=== PATIENT | female | born 1945 | race Two or more races ===

== ENCOUNTER 2024-09-11 21:18 | Emergency (ER) | payer MEDICARE, MEDICAID, SELFPAY ==
[2024-09-11 21:20] VITALS: BMI 23.4
--- NOTE | 2024-09-11 21:21 | EKG_ITS ---
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
[2024-09-11 22:40] VITALS: BP 177/71; PULSE 69; RESP 18; TEMP 36.6; O2SAT 97
--- NOTE | 2024-09-11 22:51 | XR_ITS ---
Examination: PA chest single view TECHNIQUE: Upright PA chest single view Examination time: September 11, 2024 at 11:08 PM Comparison 03/21/2018 INDICATIONS: Chest pain and shortness of breath today. FINDINGS: Normal heart size No interval lobar pneumonia or pulmonary edema Moderate osteopenia IMPRESSION: No interval pneumonia or pulmonary edema
--- NOTE | 2024-09-11 22:52 | EDRME_ITS ---
Rapid Medical Screening Exam [facility] Arrival date/time: 09/11/24 21:18 79F with history of HTN and unknown heart conditions (sees Dr. Wharton) presents to D with 1 day of CP and SOB, as well as several days of cough. Chief Complaint: Shortness of Breath/Dyspnea Vital signs: Vital Signs Temperature 98 F 09/11/24 22:40 Pulse Rate 69 09/11/24 22:40 Respiratory Rate 18 09/11/24 22:40 Blood Pressure 177/71 H 09/11/24 22:40 Pulse Oximetry (%) 97 09/11/24 22:40 Oxygen Delivery Method Room Air 09/11/24 22:40
[2024-09-11 23:27] LABS: Basophils % (Auto) 1 % (0-2.5); Eosinophils % (Auto) 0 % (0-10); Hematocrit 42.8 % (36.0-46.0); Hemoglobin 14.3 g/dL (12.0-16.0); Immature Granulocytes % (Auto) 0 % (0-0); Immature Granulocytes Auto 0.01 Thou/mm3 (0.00-0.00); Lymphocytes # (Auto) 1.3 Thou/mm3 (1.0-4.8); Lymphocytes % (Auto) 22 % (10-50); Mean Corpuscular HGB Conc 33.4 g/dl (31.0-37.0); Mean Corpuscular Hemoglobin 31.4 pg (25.0-35.0); Mean Corpuscular Volume 94 fL (80-100); Monocytes # (Auto) 0.6 Thou/mm3 (0.0-0.8); Monocytes % (Auto) 10 % (0-12); Neutrophils % (Auto) 68 % (37-80); Nucleated Red Blood Cell % 0 /100 WBC (0); Platelet Count 169 Thou/mm3 (140-440); RDW Standard Deviation 47.8 fL (36.4-46.3); Red Blood Count 4.55 Miln/mm3 (4.00-5.20); White Blood Count 5.9 Thou/mm3 (3.6-11.0)
[2024-09-11 23:42] LABS: B-Type Natriuretic Peptide 69 pg/mL (0-100)
[2024-09-11 23:54] LABS: Alanine Aminotransferase 17 U/L (10-49); Albumin, Serum 4.3 gm/dL (3.4-4.8); Albumin/Globulin Ratio 1.5 (1.2-2.2); Alkaline Phosphatase 97 U/L (46-116); Anion Gap 6 (7-16); Aspartate Amino Transferase 15 U/L (0-34); BUN/Creatinine Ratio 29 Ratio (12-20); Bilirubin,Total 0.6 mg/dL (0.3-1.2); Blood Urea Nitrogen 23 mg/dL (9-23); Carbon Dioxide 28.1 mMol/L (20.0-31.0); Chloride 105 mMol/L (98-107); Creatinine (Component) 0.8 mg/dL (0.6-1.3); Globulin 2.8 gm/dL (2.3-3.5); Glucose 116 mg/dL (74-106); Osmolality,Calculated 282 (275-295); Potassium 4.1 mMol/L (3.4-5.1); Procalcitonin 0.05 ng/ml (0.0-0.49); Sodium 139 mMol/L (136-145); Total Protein 7.1 gm/dL (5.7-8.2); Troponin I < 0.002 ng/mL (0.0-0.045); eGFR > 60 See Note
[2024-09-12] VITALS (7 sets, daily range): BP systolic 146–214; BP diastolic 75–90; PULSE 72–97; RESP 14–20; TEMP 36.6–36.9; O2SAT 94–98
--- NOTE | 2024-09-12 01:00 | PD.EDSOB ---
ED SOB =RME/HPI General Chief Complaint: Shortness of Breath/Dyspnea Stated Complaint: DIFFICULTY BREATHING, HEADACHE, CHEST PAIN, COUGH Source: patient Arrival date/time: 09/11/24 21:18 Mode of arrival: ambulatory Limitations: no limitations RME / HPI RME / HPI Narrative: 09/11/24 21:18 79F with history of HTN and unknown heart conditions (sees Dr. Wharton) presents to D with 1 day of CP and SOB, as well as several days of cough. Dr. Martin?s Main ED Evaluation: 79-year-old female with a history of hypertension, hyperlipidemia, varicose veins, gastroesophageal reflux disease, depression, and anxiety, presenting to the emergency department with left-sided chest pressure non radiating since 19:00. The pain is associated with shortness of breath and an episode of nausea and vomiting. She also endorses a cough for several days. The patient denies any other medical complaints. Cardiology: Dr. Wharton, scheduled for stress test on 09/20/24 Related Data Home Medications ?Medication ?Instructions ?Recorded ?Confirmed amlodipine 5 mg tablet 5 mg PO QDAY 11/30/18 09/12/24 buspirone 5 mg tablet 5 mg PO BID 11/30/18 09/12/24 losartan 50 mg tablet 50 mg PO QDAY 11/30/18 09/12/24 omeprazole 40 mg capsule,delayed 40 mg PO QDAY 11/30/18 09/12/24 release conjugated estrogens 0.625 mg 0.625 mg PO QDAY 09/12/24 09/12/24 tablet (Premarin) Previous Rx's ?Medication ?Instructions ?Recorded valsartan 160 mg tablet 160 mg PO QDAY #30 tabs 04/26/23 Allergies Allergy/AdvReac Type Severity Reaction Status Date / Time latex Allergy Severe BLISTER Verified 09/11/24 21:22 Penicillins Allergy Severe Hives Verified 09/11/24 21:22 Review of Systems Review of Systems Systems Reviewed: All systems reviewed, normal except as documented Past Medical History Past Medical History NEUROLOGIC: Negative Neurological Disorders or Seizures CARDIAC: Positive Cardiac Disorders, Hypercholesterolemia, Hypertension and Varicose Veins; Negative Congestive Heart Failure RESPIRATORY: Negative Chronic Obstructive Pulmonary Disease (COPD) or Pneumonia GASTROINTESTINAL: Positive Gastrointestinal Disorders, Gall Bladder Disease and Gastroesophageal Reflux Disease GENITOURINARY: Negative Genitourinary Disorders or Renal Disease REPRODUCTIVE: Positive Previous Pregnancies; Negative Breast Cancer MUSCULOSKELETAL: Positive Musculoskeletal Disorders, Arthritis, Osteoporosis and Fractures ENDOCRINE: Positive Endocrine Disorders; Negative Diabetes Mellitus Type 1 or Diabetes Mellitus Type 2 HEMATOLOGIC: Negative Blood Disorders PSYCHO/SOCIAL: Positive Depression and Anxiety OTHER HISTORY: Positive Shingles and Chicken Pox; Negative Hospitalization, Autoimmune Disease, Falls, Blood Transfusions, Anesthesia Reactions, Chemotherapy, Radiation Therapy or Breast Cancer Family History FAMILY HISTORY: Positive Family Cardiac Disorders and Family Surgery; Negative Family Psychiatric Problems, Family Respiratory Disorders, Family Gastrointestinal Problems, Family Cancer or Family Anesthesia Reaction Surgical History SURGICAL: Positive Angiogram, Arthroscopy and Hysterectomy Social History SMOKING STATUS: Never smoker ED Exam General Limitations: Present no limitations General appearance: Present alert and in no apparent distress Head Head exam: Present atraumatic Eye Eye exam: Present normal appearance, PERRL and EOMI ENT ENT exam: Present normal exam, normal oropharynx and mucous membranes moist Neck Neck exam: Present normal inspection, full ROM and trachea midline Chest Chest inspection: Present normal inspection and symmetric chest wall rise Respiratory Respiratory exam: Present normal lung sounds bilaterally Cardiovascular Cardiovascular exam: Present regular rate, normal rhythm and normal heart sounds Abdominal Exam Abdominal exam: Present soft and normal bowel sounds Extremities Exam Extremities exam: Present normal inspection and full ROM Back Exam Back exam: Present normal inspection and full ROM Neurological Exam Neurological exam: Present alert, oriented X3 and CN II-XII intact Psychiatric Psychiatric exam: Present normal affect and normal mood Skin Skin exam: Present warm, dry, intact and normal color Course Course Course Narrative: CXR is ordered for determining etiology of shortness of breath Quality Measures none Orders Category Date Time Status Bedside COVID-19 Antigen Test NOW Care 09/11/24 21:21 Active Bedside Influenza A&B Antigen Test NOW Care 09/11/24 21:[address] Screening NOW Care 09/12/24 01:33 Active Machine Stuffer Automatic STAT Care 09/12/24 01:15 Active EKG (ED ONLY) *Do not use* NOW Care 09/11/24 21:21 Completed EKG (ED ONLY) *Do not use* NOW Care 09/12/24 01:15 Completed Insert IV STAT Care 09/12/24 01:[address] soft tissue neck chest w Stat Exams 09/12/24 01:32 Taken EKG (ED Only) Stat Exams 09/11/24 21:21 Draft EKG (ED Only) Stat Exams 09/12/24 01:15 Draft XR chest 1V portable Stat Exams 09/11/24 22:51 Completed B-Type Natriuretic Peptide Stat Lab 09/11/24 23:05 Completed CBC Stat Lab 09/11/24 23:05 Completed Comprehensive Metabolic Panel Stat Lab 09/11/24 23:05 Completed Free T4 (Free Thyroxine) Stat Lab 09/12/24 01:55 Completed Lipase Stat Lab 09/12/24 01:55 Completed Magnesium Stat Lab 09/12/24 01:55 Completed Procalcitonin Stat Lab 09/11/24 23:05 Completed Prothrombin Time with INR Stat Lab 09/12/24 01:55 Completed TSH [Thyroid Stimulating Hormone] Stat Lab 09/12/24 01:55 Completed Troponin I Stat Lab 09/11/24 23:05 Completed Troponin I Stat Lab 09/12/24 01:55 Completed Aspirin Med 09/12/24 01:17 Discontinued 325 mg PO X1 ONE LORazepam [Ativan Inj] Med 09/12/24 02:16 Discontinued 0.5 mg IVP X1 ONE Nitroglycerin Oint 2% [Nitro-paste Oint 2%] Med 09/12/24 01:15 Discontinued 1 inch TOP X1 ONE Sodium Chloride 0.9% 500 ml [Ns] 500 ml Med 09/12/24 01:19 Discontinued IV 999 mls/hr Vital Signs Vital signs: Vital Signs Temperature 98 F 09/11/24 22:40 Pulse Rate 69 09/11/24 22:40 Respiratory Rate 18 09/11/24 22:40 Blood Pressure 177/71 H 09/11/24 22:40 Pulse Oximetry (%) 97 09/11/24 22:40 Oxygen Delivery Method Room Air 09/11/24 22:40 Shortness of Breath / Dyspnea MDM Narrative MDM Narrative:: Heart Score: 5 Moderate Risk 0600 Care signed out to daysiaft provider. Past medical, surgical, social and family history reviewed. Vitals and home medications reviewed. Results and treatment plan discussed. I will assume the care of the patient at this time and will follow the patient, pending possible admission. Admission has already been requested to the hospitalist team. Scribe Attestation: I, Chaparro Dias, am scribing for and in the presence of Dr. Martin. Provider Notation: Although this document has been carefully reviewed, there may still be some phonetic and other typographical errors. These errors are purely grammatical due to imperfections in the software program and should not be construed in any way to compromise the substance of the patient's medical care during this visit. Patient data External records reviewed:: [facility] previous records Clinical information provided by:: patient Social determinants that could affect healthcare access:: none Patient has the following chronic illnesses:: see PMH How is presenting disease/condition affected by chronic disease/condition?: uneffected by Evaluation data The following diagnostics were reviewed and interpreted by me:: lab results, radiology exam(s) and EKG tracing(s) Lab and/or radiology exams considered but not ordered:: na Interpretation Summary: EKG #1 According to my interpretation on 09/11/24 at 22:32, the ECG shows normal sinus rhythm at 70 bpm, with a normal axis, no ectopy, and no acute ischemic changes. EKG #2 According to my interpretation on 09/12/24 at 01:41, the ECG shows normal sinus rhythm at 66 bpm, with a normal axis, no ectopy, and no acute ischemic changes. CXR shows normal cardiac silhouette, normal sharp diaphragmatic edge, no infiltrates, normal costophrenic angles, according to my interpretation. Unchanged 03/21/2018. Examination: PA chest single view TECHNIQUE: Upright PA chest single view Examination time: September 11, 2024 at 11:08 PM Comparison 03/21/2018 INDICATIONS: Chest pain and shortness of breath today. FINDINGS: Normal heart size No interval lobar pneumonia or pulmonary edema Moderate osteopenia IMPRESSION: No interval pneumonia or pulmonary edema Dictated By: Ted Clifford MD Medications / Prescriptions Medications or Prescriptions considered but not ordered:: na Medication administrations:: Medication Administration History Discontinued Medications Aspirin (Aspirin 325 Mg Tablet) 325 mg PO X1 ONE Stop: 09/12/24 01:18 Last Admin: 09/12/24 01:43 Dose: 325 mg Documented By: BC Sodium Chloride (Ns) 500 mls @ 999 mls/hr IV .Q31M ONE Stop: 09/12/24 01:49 Last Infusion: 09/12/24 02:30 Dose: Infused Documented By: Admin: 09/12/24 01:54 Dose: 999 mls/hr Documented By: BC Lorazepam (Lorazepam 2 Mg/Ml Vial) 0.5 mg IVP X1 ONE Stop: 09/12/24 02:17 Last Admin: 09/12/24 02:34 Dose: 0.5 mg Documented By: BC Nitroglycerin (Nitroglycerin Oint 2% 1 Inch Packet) 1 inch TOP X1 ONE Stop: 09/12/24 01:16 Last Admin: 09/12/24 01:43 Dose: 1 inch Documented By: BC as above, if any Consultations Consultation(s) initiated? (list below): Yes Consultation #1 (Physician, Specialty, Details): see narrative Diagnosis Shortness of Breath Differential Diagnosis: other (STEMI, NON-STEMI, Angina, Anxiety) Most likely diagnosis given after review of the tests above:: see clinical impression Admission Indicated Admission indicated?: indicated Admission Request Was there a request for admission?: Yes Admission Attestation Admission request attestation: Discussed case with [] from Hospitalist service regarding admission. Discussed patients ED course, exam findings, labs, and radiology results. The Hospitalist [agrees,declines] to accept the patient for admission. Disposition Plan Disposition Plan: Admit Critical Care Time Critical Care Time Critical Care Time: Yes Total Critical Care Time (min.): 35 Attestation: The high probability of sudden, clinically significant deterioration in the patient?s condition required the highest level of my preparedness to intervene urgently. ? The services I provided to this patient were to treat and/or prevent clinically significant deterioration. Services included the following: chart data review, reviewing nursing notes and/or old charts, documentation time, staffing consultant collaboration regarding findings and treatment options, medication orders and management, direct patient care, vital sign assessments and ordering, interpreting and reviewing diagnostic studies and lab tests. ? Aggregate critical care time includes only time during which I was engaged in work directly related to the patient?s care, as described above, whether at bedside or elsewhere in the Emergency Department. It did not include time spent performing other reported procedures or the services of residents, students, nurses or physician assistants. Discharge Plan Prescriptions/Referrals Prescriptions/Med Rec: No Action losartan 50 mg Tablet 50 mg PO QDAY buspirone 5 mg Tablet 5 mg PO BID amlodipine 5 mg Tablet 5 mg PO QDAY omeprazole 40 mg Capsule,Delayed Release(Dr/Ec) 40 mg PO QDAY Premarin 0.625 mg tablet 0.625 mg PO QDAY valsartan 160 mg tablet 160 mg PO QDAY Qty: 30 0RF Referrals: No Primary/Family,Physician [Primary Care Provider] - In 1 week Problem List Clinical Impression: Chest pain, Dehydration, Thyroid mass Patient/Caregiver Discharge Instructions Print Language: [place]an
--- NOTE | 2024-09-12 01:15 | EKG_ITS ---
[facility] Test Date: 2024-09-12 Pat Name: CAMILA PEREZ Department: Room: - Gender: Female [id number] Developer: : 1945 Requested By: Stevie Curtis Order Number: [id number] Reading MD: Stevie Curtis Measurements Intervals [place] Rate: 66 P: 48 [place]: 184 QRS: 33 QRSD: 86 T: 65 QT: 404 QTc: 424 Interpretive Statements SINUS RHYTHM Compared to ECG 09/11/2024 22:33:34 No significant changes /store/S0/[id number].pdf
--- NOTE | 2024-09-12 01:32 | XR_ITS ---
Examination: CT soft tissue neck with intravenous contrast CT chest with intravenous contrast 2-D sagittal and coronal reconstructions Exam date and time: September 12, 2024 at 0328 hours INDICATIONS: History thyroidectomy, onset right neck mass difficulty breathing beginning 3 days ago CTDI:vol (mGy) 20.72 DLP: (mGycm) 502 Technique: Multiple axial sections of the thorax soft tissue neck have been obtained. Sections have been obtained, 3 mm slice thickness. Mediastinal and lung density settings have been obtained. Intravenous contrast administered, 50 cc Isovue-370. 2-D sagittal, coronal images obtained. Low dose protocols were performed. One or more of the following dose reduction techniques were used; automated exposure control, adjustment of the mA and/or KV according to patient size, use of iterative reconstruction technique. Findings: Significant left maxillary sinus disease No enhancing oropharyngeal or nasopharyngeal mass Symmetrical submandibular glands The larynx appears normal Right thyromegaly with multiple bilateral thyroid nodules Thoracic aorta pulmonary arteries intact No paratracheal tracheobronchial or bronchopulmonary adenopathy 7 mm noncalcified pulmonary nodule right upper lobe. No pneumonia or pulmonary edema Mild enlargement left atrium and left ventricle No visualized overt splenic lesion Absent gallbladder Common bile duct 17 mm IMPRESSION: Significant left maxillary sinus disease Right thyromegaly Multiple bilateral thyroid nodules, recommend dedicated thyroid sonography follow-up 7 mm noncalcified pulmonary nodule right upper lobe, recommend 6 month follow-up CT chest without contrast Common bile duct 17 mm, recommend hepatobiliary sonography follow-up
[2024-09-12] MEDS: Aspirin 325 MG TABLET PO (01:43)
[2024-09-12] MEDS: NITROGLYCERIN OINT 2% 1 INCH PACKET TOP (01:43)
[2024-09-12] MEDS: SODIUM CHLORIDE 0.9% 500 ML 500 ML 999 ML IV (01:54)
[2024-09-12] MEDS: LORazepam 2 MG/ML VIAL 0.5 MG IVP (02:34)
[2024-09-12 02:46] LABS: Prothrombin Time 10.8 Seconds (9.0-12.2)
[2024-09-12 02:55] LABS: Free T4 (Free Thyroxine) 1.25 ng/dL (0.89-1.76); Lipase 50 U/L (12-53); Magnesium 2.4 mg/dL (1.6-2.6); Thyroid Stimulating Hormone 2.56 uIU/mL (0.55-4.78); Troponin I < 0.002 ng/mL (0.0-0.045)
--- NOTE | 2024-09-12 04:30 | PRELIM_ITS ---
CT scan of the neck and chest with intravenous contrast (axial sections with sagittal and coronal reformats) September 12, 2024 0328 hours Clinical History: Chest pain Comparison: None. Findings: The nasopharynx, oropharynx, hypopharynx, supraglottic and infraglottic larynx, vocal cords and upper trachea are unremarkable. The epiglottis and aryepiglottic folds appear unremarkable. The superficial soft tissues of the neck are unremarkable. No enhancing lesion or fluid collection is identified. The vessels of the neck are well opacified. No filling defect is seen. Small consolidations at the lung bases, atelectasis versus small foci of pneumonia. There is no pneumothorax or pleural effusion. The aorta is unremarkable. No evidence of mediastinal mass or lymphadenopathy. There is no pericardial effusion. S/p cholecystectomy. Small hiatus hernia. The osseous structures are unremarkable. Small hiatus hernia. Heterogenous bilateral thyroid nodules, the largest measuring 2.7 cm. Dilated left atrium. Impression: Dilated left atrium. Thyroid nodules, correlation with thyroid function tests and ultrasound is recommended. Small hiatus hernia. Small consolidations at the lung bases, atelectasis versus small foci of pneumonia. Small hiatus hernia. Report Electronically Signed By: Eddie Brady 09/12/2024 4:29:41 AM [EST]
--- NOTE | 2024-09-12 06:05 | EVENTNT_ITS ---
Documentation for date of: 09/12/24 Event Note Event Note: A 78-year-old female patient with past medical history of hypertension, GERD, depression, anxiety, hyperlipidemia, came to the ED today due to history of chest pain located in the left side with no radiation started at 7 PM. As sociated shortness of breath nausea vomiting. Patient was scheduled to see Dr. Wharton for stress test on 20 September 2024. EKG was negative for any ischemic changes, and troponin was negative in 2 reads. On questioning patient found to have thyroid goiter and reported that it affects her swallowing however no respiratory symptoms. At this time her blood pressure is 157/86 heart rate of 90, patient was given aspirin, lorazepam, nitroglycerin and was given IV fluids. Patient reported result of all her symptoms at this time. CT scan of neck soft tissue was ordered however was still pending. For that reason with the past the patient to the day team after the result of the neck soft tissue CT scan. - Patient's plan and care discussed with my attending, Dr. Catalina Chow MD Internal Medicine PGY-2
--- NOTE | 2024-09-12 07:38 | PC.NURSE ---
PT RESTING W/EYES CLOSED UPON ASSUMPTION OF CARE, DENIES ANY PAIN FOR DISCOMFORT AT THIS TIME. DENIES ANY CURRENT SOB, VSS ON TELE, CALL [facility] IN REACH, WILL CONTINUE W/POC.
--- NOTE | 2024-09-12 08:58 | ESCONSULT_ITS ---
HPI Data of Consult Patient: known to practice within the last 3 years Consult date: 09/12/24 Primary Care Provider: Physician No Primary/Family Consult Narrative Reason for consult: Chest pain History of present illness: Ms. Guallpa is a 79-year-old female with past medical history of hypertension, hyperlipidemia, varicose veins, GERD and anxiety who presented to [facility] emergency department on 09/12/2024 with a chief complaint of chest pressure. Patient reported substernal chest pressure patient 8/10 nonradiating to the patient left arm/jaw/back associated with shortness of breath, diaphoresis nausea and vomiting. Patient reported that she took a aspirin to help alleviate pain but vomited the aspirin out. Patient complains on and off chest pain of similar nature at home relieved by aspirin and resting. Patient otherwise denies any dizziness, palpitations, PND, Falls, Syncope and headache. ED course: On presentation blood pressure 177/71, heart rate 69, respirate rate 18, temp 98, O2 sat 97 on room air. EKG done in ED was negative for any acute ST?T changes, troponin I was negative twice otherwise patient's labs were remarkable for glucose 116. Chest x-ray was negative for any acute disease CT soft tissue neck showed left maxillary sinus disease right thyromegaly multiple bilateral thyroid nodules 7 mm noncalcified pulmonary nodule right upper lobe common bile duct 17 mm. Patient was given nitroglycerin topical patch, aspirin 325 p.o. x 1, 500 cc NS bolus and Ativan 0.5 mg IV push. ED consulted hospitalist for admission, cardiology was consulted as patient follows with Dr. Bahena outpatient. cc:: cc: Review of Systems Review of Systems Narrative Review of Systems: ROS: -CONSTITUTIONAL: Denies weight loss, fever and chills. -HEENT: Denies changes in vision and hearing. -RESPIRATORY: Positive for SOB and cough. -CV: Denies palpitations and positive for Chest Pain. -GI: Denies abdominal pain, constipation and diarrhea. Positive for nausea and vomiting -: Denies dysuria and urinary frequency. -MSK: Denies myalgia and joint pain. -SKIN: Denies rash and pruritus. -NEUROLOGICAL: Denies headache and syncope. -PSYCHIATRIC: Denies recent changes in mood. Denies anxiety and depression. Past Medical History Past Medical History NEUROLOGIC: Negative Neurological Disorders CARDIAC: Positive Cardiac Disorders, Hypercholesterolemia, Hypertension (TAKES MED) and Varicose Veins (RORY) GASTROINTESTINAL: Positive Gastrointestinal Disorders, Gall Bladder Disease (CURRENT PROBLEM) and Gastroesophageal Reflux Disease REPRODUCTIVE: Positive Previous Pregnancies (X8) MUSCULOSKELETAL: Positive Musculoskeletal Disorders, Arthritis, Osteoporosis and Fractures (RIGHT KNEE SURG) ENDOCRINE: Positive Endocrine Disorders ( THYROID NODULES REMOVED ) PSYCHO/SOCIAL: Positive Depression and Anxiety OTHER HISTORY: Positive Shingles (2006) and Chicken Pox Family History FAMILY HISTORY: Positive Family Cardiac Disorders (MOTHER (HEART,HTN)) and Family Surgery (MOTHER) Surgical History SURGICAL: Positive Angiogram, Arthroscopy (RIGHT KNEE) and Hysterectomy (RORY SALPING) Social History SMOKING STATUS: Never smoker Exam Vital Signs Temp Pulse Resp BP Pulse Ox O2 Del Method 97.8 F 97 16 163/90 H 94 L Room Air 09/12/24 08:07 09/12/24 08:07 09/12/24 08:07 09/12/24 08:07 09/12/24 08:07 09/12/24 08:07 Narrative Exam Physical Exam General: Awake and in no acute distress. Conversational and non-toxic appearing. HEENT: Normocephalic, atraumatic, mucous membranes moist. Heart: Regular rate and rhythm, no murmurs. Lungs: Clear to auscultation with no wheezing or crackles. Abdomen: Soft, nondistended, nontender, positive bowel sounds. ?No guarding or rebound tenderness. Neurologic: Alert and oriented x3, no gross neurological deficit, and patient able to move all 4 extremities. Extremities: No edema. Skin: No rash or ecchymoses. Results Labs 09/11/24 23:05 09/11/24 23:05 Labs: Short CBC 09/11/24 Range/Units 23:05 WBC 5.9 (3.6-11.0) Thou/mm3 Hgb 14.3 (12.0-16.0) g/dL Hct 42.8 (36.0-46.0) % Plt Count 169 (140-440) Thou/mm3 BMP 09/11/24 23:05 Sodium 139 Potassium 4.1 Chloride 105 Carbon Dioxide 28.1 BUN 23 Creatinine 0.8 Glucose 116 H Calcium 10.0 Cardiac Enzymes 09/11/24 09/12/24 Range/Units 23:05 01:55 Troponin I < 0.002 < 0.002 (0.0-0.045) ng/mL Liver Function 09/11/24 Range/Units 23:05 Total Bilirubin 0.6 (0.3-1.2) mg/dL AST 15 (0-34) U/L ALT 17 (10-49) U/L Alkaline Phosphatase 97 (46-116) U/L Albumin 4.3 (3.4-4.8) gm/dL Quality Measures Quality Measures none Advance care planning discussed with:: patient Medications Home Medications and Allergies Home Medications ?Medication ?Instructions ?Recorded ?Confirmed ?Type buspirone 5 mg tablet 5 mg PO BID 11/30/18 5 History omeprazole 40 mg capsule,delayed 40 mg PO QDAY 9 09/12/24 History release conjugated estrogens 0.625 mg 0.625 mg PO QDAY 5 09/12/24 History tablet (Premarin) Allergies Allergy/AdvReac Type Severity Reaction Status Date / Time latex Allergy Severe BLISTER Verified 09/11/24 21:22 Penicillins Allergy Severe Hives Verified 09/11/24 21:22 Visit Medications Discontinued Medications Aspirin (Aspirin 325 Mg Tablet) 325 mg PO X1 ONE Stop: 09/12/24 01:18 Last Admin: 09/12/24 01:43 Dose: 325 mg Sodium Chloride (Ns) 500 mls @ 999 mls/hr IV .Q31M ONE Stop: 09/12/24 01:49 Last Infusion: 09/12/24 02:30 Dose: Infused Lorazepam (Lorazepam 2 Mg/Ml Vial) 0.5 mg IVP X1 ONE Stop: 09/12/24 02:17 Last Admin: 09/12/24 02:34 Dose: 0.5 mg Nitroglycerin (Nitroglycerin Oint 2% 1 Inch Packet) 1 inch TOP X1 ONE Stop: 09/12/24 01:16 Last Admin: 09/12/24 01:43 Dose: 1 inch Assessment & Plan Assessment Assessment and plan: Summary: Ms. Guallpa is a 79-year-old female with past medical history of hypertension, hyperlipidemia, varicose veins, GERD and anxiety who presented to [facility] emergency department on 09/12/2024 with a chief complaint of chest pressure. Patient reported substernal chest pressure patient 8/10 nonradiating to the patient left arm/jaw/back associated with shortness of breath, diaphoresis nausea and vomiting. Patient reported that she took a aspirin to help alleviate pain but vomited the aspirin out. Patient complains on and off chest pain of similar nature at home relieved by aspirin and resting. Patient otherwise denies any dizziness, palpitations and headache. On presentation blood pressure 177/71, heart rate 69, respirate rate 18, temp 98, O2 sat 97 on room air. EKG done in ED was negative for any acute ST?T changes, troponin I was negative twice otherwise patient's labs were remarkable for glucose 116. Chest x-ray was negative for any acute disease CT soft tissue neck showed left maxillary sinus disease right thyromegaly multiple bilateral thyroid nodules 7 mm noncalcified pulmonary nodule right upper lobe common bile duct 17 mm. Patient was given nitroglycerin topical patch, aspirin 325 p.o. x 1, 500 cc NS bolus and Ativan 0.5 mg IV push. ED consulted hospitalist for admission, cardiology was consulted as patient follows with service outpatient. #Cardiac Chest Pain Reported substernal chest pressure patient 8/10 nonradiating to the patient left arm/jaw/back associated with shortness of breath, diaphoresis nausea and vomiting. EKG done in ED was negative for any acute ST?T changes, troponin I was negative twice Chest x-ray was negative for any acute disease CT soft tissue neck showed left maxillary sinus disease right thyromegaly multiple bilateral thyroid nodules 7 mm noncalcified pulmonary nodule right upper lobe common bile duct 17 mm. Recommendations: -Started on aspirin 81 mg daily -Continue anxiety management with Buspar -Scheduled for stress test on September 20, 2024. Patient wants to proceed with stress test. -Return to ED if worsening chest pain develops. #Hypertension On presentation blood pressure 177/71. Recommendations: Uptitrate amlodipine to 10 mg p.o. daily Uptitrate Lisinopril to 20 mg visit today qday Follow outpatient in clinic #Hyperlipidemia #Varicose vein #GERD #Anxiety #Varicose veins Continue current management. Thank you for the consult and allowing to participate in the care of the patient. Case discussed with Attending Dr. Josef Cortez PGY1 Disclaimer: This note was dictated by speech recognition. Minor errors in sales representative canvas products may be present due to voice recognition software. Attending Provider Attestation/Addendum I have personally seen and examined the patient separately on the above date of service and discussed the plan of care with the resident. I reviewed the resident Dr. Humberto Cortez consultation progress note and agree with the resident findings and plan in the note above and have also edited the documentation to reflect my findings and plan. Patient well-known to me from the clinic and follows with me regularly. She was seen a few weeks ago with a similar complaints and patient does have significant anxiety and stress in her life at the present point of time. Patient chest pain has both typical and atypical features. Her blood pressure was elevated in the range of 180 to 200 mmHg. Patient had an echo recently in my office few days ago which showed normal LVEF and also normal RV size and function. Only mild valvular abnormalities. Patient was recommended nuclear stress test for which she is scheduled on September 20, 2024. Had EKG showed normal sinus rhythm without acute ST-T changes. Troponins 2 sets were negative. At the present point of time patient does not have any chest pain. Patient was recommended a cardiac catheterization as she has been having some chest pressure recently but she still wants to keep her outpatient stress test and does not have invasive testing at the present point of time. Patient recommended to follow-up with me in the clinic next week for her stress test results. Recommend to be on aspirin and statin for now. Check TSH A1c for further cardiac risk stratification Patient blood pressure is elevated in the range of 180-200 mmHg. Patient only taking amlodipine 5 mg once daily and lisinopril 10 mg once daily. She was actually only on lisinopril 5 mg once daily recently. Patient had a higher dose of medication last year but she decreased the dosages as her blood pressure was apparently stable at home. Will increase amlodipine to 10 mg once daily disrupted 20 mg once daily and recommended follow-up with me in the clinic early next week for further blood pressure control. Patient instructed clearly to come to the ED if she has any further chest pain episodes. Bernard Bahena M.D. Interventional Cardiology
--- NOTE | 2024-09-12 09:03 | PD.RESCONSUL ---
HPI Data of Consult Patient: new to practice Consult date: 09/12/24 Primary Care Provider: Physician No Primary/Family Consult Narrative Reason for consult: chest pain History of present illness: The patient is a 79-year-old female with a previous medical history of hypertension, hyperlipidemia, varicose veins, GERD, depression and anxiety who was brought to the ED due to chest pain that started at 7 PM. She also reported having shortness of breath. She reports having similar chest pain everyday, does not report aggravation by physical exertion and the pain is stabbing in nature. Per daughter at the bedside, patient is following up with Dr. Bahena and was scheduled to have a follow and stress test on September 20. In the ED she had high blood pressure 177/71, was afebrile, saturated well on room air. Blood work was mostly unremarkable, troponin I was negative twice, procalcitonin was 0.05, unremarkable, TSH and T4 was normal. EKG showed sinus rhythm, chest x-ray was negative for pneumonia or pulmonary edema, neck CT showed multiple bilateral thyroid nodules, 7 mm noncalcified pulmonary nodule right upper lobe. She received nitroglycerin patch, aspirin 325 mg once, 500 mL of sodium chloride, lorazepam 0.5 IV once. At the moment of examination she reported that she is feeling anxious due to the stress, her chest pain has improved. Patient was seen and examined by the bedside and was recommended to follow-up with Dr. Bahena. cc:: cc: Review of Systems Review of Systems Systems Reviewed: All systems reviewed, normal except as documented Past Medical History Past Medical History NEUROLOGIC: Negative Neurological Disorders or Seizures CARDIAC: Positive Cardiac Disorders, Hypercholesterolemia, Hypertension and Varicose Veins; Negative Congestive Heart Failure RESPIRATORY: Negative Chronic Obstructive Pulmonary Disease (COPD) or Pneumonia GASTROINTESTINAL: Positive Gastrointestinal Disorders, Gall Bladder Disease and Gastroesophageal Reflux Disease GENITOURINARY: Negative Genitourinary Disorders or Renal Disease REPRODUCTIVE: Positive Previous Pregnancies; Negative Breast Cancer MUSCULOSKELETAL: Positive Musculoskeletal Disorders, Arthritis, Osteoporosis and Fractures ENDOCRINE: Positive Endocrine Disorders; Negative Diabetes Mellitus Type 1 or Diabetes Mellitus Type 2 HEMATOLOGIC: Negative Blood Disorders PSYCHO/SOCIAL: Positive Depression and Anxiety OTHER HISTORY: Positive Shingles and Chicken Pox; Negative Hospitalization, Autoimmune Disease, Falls, Blood Transfusions, Anesthesia Reactions, Chemotherapy, Radiation Therapy or Breast Cancer Family History FAMILY HISTORY: Positive Family Cardiac Disorders and Family Surgery; Negative Family Psychiatric Problems, Family Respiratory Disorders, Family Gastrointestinal Problems, Family Cancer or Family Anesthesia Reaction Surgical History SURGICAL: Positive Angiogram, Arthroscopy and Hysterectomy Social History SMOKING STATUS: Never smoker Exam Vital Signs Temp Pulse Resp BP Pulse Ox O2 Del Method 97.8 F 97 16 163/90 H 94 L Room Air 09/12/24 08:07 09/12/24 08:07 09/12/24 08:07 09/12/24 08:07 09/12/24 08:07 09/12/24 08:07 Narrative Exam Physical Exam General: Awake and in no acute distress. Conversational and non-toxic appearing. HEENT: Normocephalic, atraumatic, mucous membranes moist. Heart: Regular rate and rhythm, no murmurs. Lungs: Clear to auscultation with no wheezing or crackles. Abdomen: Soft, nondistended, nontender, positive bowel sounds. ?No guarding or rebound tenderness. Neurologic: Alert and oriented x3, no gross neurological deficit, and patient able to move all 4 extremities. Extremities: No edema. Skin: No rash or ecchymoses. Results Labs 09/11/24 23:05 09/11/24 23:05 Labs: Short CBC 09/11/24 Range/Units 23:05 WBC 5.9 (3.6-11.0) Thou/mm3 Hgb 14.3 (12.0-16.0) g/dL Hct 42.8 (36.0-46.0) % Plt Count 169 (140-440) Thou/mm3 BMP 09/11/24 23:05 Sodium 139 Potassium 4.1 Chloride 105 Carbon Dioxide 28.1 BUN 23 Creatinine 0.8 Glucose 116 H Calcium 10.0 Cardiac Enzymes 09/11/24 09/12/24 Range/Units 23:05 01:55 Troponin I < 0.002 < 0.002 (0.0-0.045) ng/mL Liver Function 09/11/24 Range/Units 23:05 Total Bilirubin 0.6 (0.3-1.2) mg/dL AST 15 (0-34) U/L ALT 17 (10-49) U/L Alkaline Phosphatase 97 (46-116) U/L Albumin 4.3 (3.4-4.8) gm/dL Quality Measures Quality Measures none Advance care planning discussed with:: other Medications Home Medications and Allergies Home Medications ?Medication ?Instructions ?Recorded ?Confirmed ?Type buspirone 5 mg tablet 5 mg PO BID 11/30/18 09/12/24 History omeprazole 40 mg capsule,delayed 40 mg PO QDAY 11/30/18 09/12/24 History release conjugated estrogens 0.625 mg 0.625 mg PO QDAY 09/12/24 09/12/24 History tablet (Premarin) Allergies Allergy/AdvReac Type Severity Reaction Status Date / Time latex Allergy Severe BLISTER Verified 09/11/24 21:22 Penicillins Allergy Severe Hives Verified 09/11/24 21:22 Visit Medications Discontinued Medications Aspirin (Aspirin 325 Mg Tablet) 325 mg PO X1 ONE Stop: 09/12/24 01:18 Last Admin: 09/12/24 01:43 Dose: 325 mg Sodium Chloride (Ns) 500 mls @ 999 mls/hr IV .Q31M ONE Stop: 09/12/24 01:49 Last Infusion: 09/12/24 02:30 Dose: Infused Lorazepam (Lorazepam 2 Mg/Ml Vial) 0.5 mg IVP X1 ONE Stop: 09/12/24 02:17 Last Admin: 09/12/24 02:34 Dose: 0.5 mg Nitroglycerin (Nitroglycerin Oint 2% 1 Inch Packet) 1 inch TOP X1 ONE Stop: 09/12/24 01:16 Last Admin: 09/12/24 01:43 Dose: 1 inch Assessment & Plan Plan The patient is a 79-year-old female with a previous medical history of hypertension, hyperlipidemia, varicose veins, GERD, depression and anxiety who was brought to the ED due to chest pain that started at 7 PM. #Atypical Chest pain, ACS ruled out Patient reported having regular stabbing chest pain that started around 7 pm yesterday together with shortness of breath. Signs and symptoms are more likely in favor of non-anginal chest pain, but due to comorbidities and risk factors chest pain will require work up outpatient. EKG showed sinus rhythm, Troponins negative x2 Plan: - consult to Dr. Bahena, white metal caster, follow up as scheduled - discharge from ED and follow-up outpatient #Hypertension Patient has history of HTN and hgh blood pressure was noted in the ED. Plan: - continue with current blood pressure management #History of GERD - continue omeprazole #Anxiety - continue buspirone Plan of care discussed with attending Dr. Kimbrough, PGY-[address] Rock and PGY-[address] Patel. Elisha Addison MD, PGY 1. - ATTESTATION: I saw and examined the patient this morning, and I agree with current management stated by the resident. Will continue to monitor patient during their stay. Disclaimer: Despite multiple revisions, due to the dictation software being used, the document bellow may not be free of grammatical errors including phonetic/typographic errors. However, this does not deter from our commitment to providing health care in the patient's best interest in mind. Dr. Pepe Patel, PGY-3 Attending Provider Attestation/Addendum I, Yen Kimbrough DO, attest that I was physically present for the guzman portions of the service and evaluated the patient with the resident and I reviewed and discussed the case with the resident and agree with the resident's findings and plans of care as documented above Patient is a 79-year-old female past medical history of hypertension, hyperlipidemia, GERD, depression and anxiety who presented to the ED due to left-sided chest pain that was sharp and began at 7 PM. Patient states that she has chest pain every night at 6 PM which usually resolves with a baby aspirin. However, last night, pain did not resolve with aspirin which prompted her to come to the ED. Patient has had a cardiac cath with the last [address] Wharton. Cath was unremarkable for any obstructive disease. Daughter is at bedside to provide further history and works in our cardiac [employer]. She states that her mother is very anxious and has a stress test scheduled for September 20. Upon further questioning, patient became very tearful and states that she is stressing over some family matters which has been causing her to have these episodes of chest pain. Patient did present with uncontrolled blood pressure of 214/75. Spoke to patient's white metal caster, patient has been adjusting her home medications on her own resulting in fluctuant blood pressures. Her troponin has been negative x 2 and EKG is unremarkable with no ST or T wave changes. Cardiology agrees with our plan and can be followed up outpatient. Will discharge patient home as symptoms have resolved. Chest pain is very atypical and likely due to anxiety. Patient is to follow-up with Dr. Any monitor outpatient for stress test as scheduled on September 20, 2024. Blood pressure medications have been adjusted and patient counseled regarding change in medications and compliance with her blood pressure medications.
== END 2024-09-12 10:13 | disposition home or self-care (01) ==
PROVIDERS: Physician Assistant; Emergency Provider Emergency Medicine
DX: R07.89 Other chest pain (principal); E86.0 Dehydration; E07.9 Disorder of thyroid, unspecified; I10 Essential (primary) hypertension; K21.9 Gastro-esophageal reflux disease without esophagitis; E78.5 Hyperlipidemia, unspecified; F41.9 Anxiety disorder, unspecified; F32.A Depression, unspecified
CPT/HCPCS: 36415; 70491; 71045; 71260; 80053; 83690; 83735; 83880; 84145; 84439; 84443; 84484; 85025; 85610; 87400; 87811; 93005; 96361; 96374; 99285; A4649; J2060; J7040; Q9967; A9270

== ENCOUNTER → 2024-09-27 | Outpatient (CLI) | payer OTHER, MEDICAID, SELFPAY ==
--- NOTE | 2024-09-27 13:00 | XR_ITS ---
Examination: Thyroid sonography complete TECHNIQUE: Grayscale sonographic images thyroid lobes with color flow analysis Exam date and time: September 27, 2024 1041 hours Comparison November 17, 2023 INDICATIONS: Clinical diagnosis nontoxic thyroid nodule, neck and throat pain one year, thyroid sonogram November 17, 2023 vascular midpole right thyroid nodule 3.1 cm left thyroid upper pole nodules 9 mm 6 mm lower pole nodule 18 mm FINDINGS: Right thyroid 4.7 cm Vascular midpole nodule 3.3 x 2.8 cm Left thyroid 4.4 cm Upper pole cyst 3 mm Midpole nodule with cystic change 16 x 14 mm Lower pole nodule 7 x 7 mm IMPRESSION: Thyroid nodules as above Consider ultrasound-guided fine-needle aspiration of the large vascular midpole right thyroid nodule
== END | disposition home or self-care (01) ==
PROVIDERS: PCP Internal Medicine; Referring Provider Nurse Practitioner Family; Visit Provider Nurse Practitioner Family
DX: E04.2 Nontoxic multinodular goiter (principal)
CPT/HCPCS: 76536

== ENCOUNTER → 2024-10-03 | Outpatient (CLI) | payer OTHER, MEDICAID, SELFPAY ==
--- NOTE | 2024-10-03 14:15 | XR_ITS ---
Examination: Screening digital mammography, bilateral Computer aided detection 3-D breast Tomosynthesis, bilateral Date and time of exam 10/03/2024, 2:28 PM: Comparisons: July 26, 2016 Indications: Screening Technique: Nonmagnified MLO, CC views of the breasts to been obtained, reconstructed from 3-D Tomosynthesis images. R2 computer aided detection program utilized for evaluation of suspicious masses and/or abnormal calcifications. 3-D Tomosynthesis images obtained. Technologist: Findings: The breasts are heterogeneously dense, which may obscure small masses. Multiple bilateral benign-appearing partially obscured oval masses. No evidence of suspicious masses or suspicious calcifications. Impression: BI-RADS category 2: Benign findings Recommend 1 year follow-up mammogram
== END | disposition home or self-care (01) ==
PROVIDERS: PCP Internal Medicine; Referring Provider Internal Medicine; Visit Provider Internal Medicine
DX: Z12.31 Encounter for screening mammogram for malignant neoplasm of breast (principal); R92.323 Mammographic fibroglandular density, bilateral breasts
CPT/HCPCS: 77063; 77067

== ENCOUNTER → 2024-10-09 | Outpatient (CLI) | payer MEDICARE, MEDICAID, SELFPAY ==
[2024-10-08 13:38] LABS: Basophils % (Auto) 0 % (0-2.5); Eosinophils % (Auto) 0 % (0-10); Hematocrit 43.5 % (36.0-46.0); Hemoglobin 14.6 g/dL (12.0-16.0); Immature Granulocytes % (Auto) 0 % (0-0); Immature Granulocytes Auto 0.01 Thou/mm3 (0.00-0.00); Lymphocytes # (Auto) 1.6 Thou/mm3 (1.0-4.8); Lymphocytes % (Auto) 27 % (10-50); Mean Corpuscular HGB Conc 33.6 g/dl (31.0-37.0); Mean Corpuscular Hemoglobin 32.1 pg (25.0-35.0); Mean Corpuscular Volume 96 fL (80-100); Monocytes # (Auto) 0.6 Thou/mm3 (0.0-0.8); Monocytes % (Auto) 11 % (0-12); Neutrophils # (Auto) 3.7 Thou/mm3 (1.8-7.7); Neutrophils % (Auto) 62 % (37-80); Nucleated Red Blood Cell % 0 /100 WBC (0); Platelet Count 192 Thou/mm3 (140-440); RDW Standard Deviation 50.8 fL (36.4-46.3); Red Blood Count 4.55 Miln/mm3 (4.00-5.20)
[2024-10-08 13:41] LABS: Partial Thromboplastin Time 24.7 Seconds (22.0-36.0)
--- NOTE | 2024-10-09 10:30 | XR_ITS ---
Examination: Ultrasound-guided fine needle percutaneous aspiration thyroid nodule, right mid thyroid nodule. Thyroid sonography, limited Exam date and time: October 09, 2024 1102 hours INDICATIONS: Vascular midpole right thyroid nodule on thyroid sonogram September 27, 2024. Technique: A timeout was completed verifying correct patient, procedure, site, positioning and special equipment if applicable. The patient was placed in supine position for the thyroid fine needle percutaneous aspiration The patient's right neck neck was prepped and draped in sterile fashion. Maximum barrier sterile technique, hand hygiene, ultrasound sterile technique. 1% lidocaine was used to anesthetize the skin and subcutaneous tissues to the patient's right thyroid nodule. Multiple fine needle aspirations were performed and multiple thyroid specimens placed in preservative according to the irm protocol. Specimens appears satisfactory. The attending radiologist was present for the entire procedure. Estimated blood loss 3 cc. The patient tolerated the procedure well and there were no complications. Impression: Successful ultrasound-guided fine-needle percutaneous aspiration thyroid nodule, midpole right thyroid nodule.
== END | disposition home or self-care (01) ==
PROVIDERS: Radiology Diagnostic Radiology; PCP Nurse Practitioner Family; Referring Provider Nurse Practitioner Family; Visit Provider Nurse Practitioner Family
DX: D44.0 Neoplasm of uncertain behavior of thyroid gland (principal); Z01.812 Encounter for preprocedural laboratory examination
CPT/HCPCS: 10005; 36415; 85025; 85610; 85730

== ENCOUNTER 2025-01-28 07:15 | Day surgery (SDC) | payer MEDICARE, MEDICAID, SELFPAY ==
[2025-01-23 07:17] VITALS: BMI 24.1
[2025-01-23 09:58] LABS: Basophils # (Auto) 0.0 Thou/mm3 (0.0-0.2); Basophils % (Auto) 1 % (0-2.5); Eosinophils # (Auto) 0.0 Thou/mm3 (0.0-0.5); Eosinophils % (Auto) 0 % (0-10); Hematocrit 41.1 % (36.0-46.0); Hemoglobin 14.3 g/dL (12.0-16.0); Immature Granulocytes Auto 0.01 Thou/mm3 (0.00-0.00); Lymphocytes # (Auto) 1.7 Thou/mm3 (1.0-4.8); Lymphocytes % (Auto) 33 % (10-50); Mean Corpuscular HGB Conc 34.8 g/dl (31.0-37.0); Mean Corpuscular Hemoglobin 33.6 pg (25.0-35.0); Mean Corpuscular Volume 97 fL (80-100); Monocytes # (Auto) 0.7 Thou/mm3 (0.0-0.8); Monocytes % (Auto) 13 % (0-12); Neutrophils # (Auto) 2.9 Thou/mm3 (1.8-7.7); Neutrophils % (Auto) 54 % (37-80); Nucleated Red Blood Cell # 0.00 Thou/mm3 (0.00-0.00); Nucleated Red Blood Cell % 0 /100 WBC (0); Platelet Count 192 Thou/mm3 (140-440); RDW Standard Deviation 50.5 fL (36.4-46.3); Red Blood Count 4.25 Miln/mm3 (4.00-5.20); White Blood Count 5.4 Thou/mm3 (3.6-11.0)
[2025-01-23 10:09] LABS: Alanine Aminotransferase 16 U/L (10-49); Albumin, Serum 4.1 gm/dL (3.4-4.8); Albumin/Globulin Ratio 1.5 (1.2-2.2); Alkaline Phosphatase 89 U/L (46-116); Anion Gap 3 (7-16); Aspartate Amino Transferase 23 U/L (0-34); BUN/Creatinine Ratio 17 Ratio (12-20); Bilirubin,Total 0.8 mg/dL (0.3-1.2); Blood Urea Nitrogen 15 mg/dL (9-23); Calcium 9.6 mg/dL (8.3-10.6); Calcium (Corrected) 9.6 mg/dL (8.5-10.1); Carbon Dioxide 32.4 mMol/L (20.0-31.0); Chloride 104 mMol/L (98-107); Creatinine (Component) 0.9 mg/dL (0.6-1.3); Estimated Creatinine Clearance 41.5 mL/min (>60); Globulin 2.8 gm/dL (2.3-3.5); Glucose 107 mg/dL (74-106); Osmolality,Calculated 278 (275-295); Potassium 3.9 mMol/L (3.4-5.1); Sodium 139 mMol/L (136-145); Total Protein 6.9 gm/dL (5.7-8.2); eGFR > 60 See Note
--- NOTE | 2025-01-24 12:26 | SUR.PREOP ---
Pt denies any chest pain or shortness of breath.
[2025-01-28] VITALS (9 sets, daily range): BP systolic 122–159; BP diastolic 58–71; PULSE 58–79; RESP 12–20; TEMP 36.1–36.4; O2SAT 93–97; BMI 23.6
--- NOTE | 2025-01-28 10:22 | PD.SUROPNT ---
Date of Procedure 01/28/25 Pre Op Diagnosis Bilateral thyroid nodules Post Op Diagnosis Bilateral thyroid nodules Procedure Completion bilateral thyroidectomy Findings Patient had multiple hard and small left thyroid nodules. She has a very large cystic nodule on the right lobe that was replacing almost all thyroid tissue Procedure Description Patient brought to the operating room in supine position. After administration of general endotracheal anesthesia, patient's neck was extended and prepped and draped in standard surgical manner. An approximately 6 cm semicircular incision was made approximately 2 fingerbreadths above the sternal notch over her previous scar. Dissection was carried subcutaneous tissue and platysma was divided. Superior and inferior subplatysmal plane were developed. Median raphae was identified and divided. The procedure started on patient's left side. Patient was noted to have moderate amount of scarring from previous operation. The strap muscle on the left side was retracted laterally and the areolar tissue between the strap muscle and the thyroid tissues were divided. Patient was noted to have multiple hard and small nodules. The median thyroid vein was identified and ligated. The superior pole vessels were mobilized and divided with 0 silk tie. The inferior vessels were then individually identified and ligated. The recurrent laryngeal nerve on the left side was identified and kept away from dissection proceeded all times. I was able to identify the superior parathyroid gland and preserved it, I was unable to clearly identify the inferior parathyroid gland. Once the vessels were ligated the thyroid was from the anterior surface of the trachea by dividing the ligament of Bañuelos. The left lobe was marked with sutures to orient the pathologist. The area was copiously thoroughly washed and irrigated, all the fluids were suctioned in the section fluids and clear. Hemostasis was adequate and satisfactory. Topical hemostatic agent snow Surgicel placed on the left side of the neck to further secure hemostasis. I then turned my attention to the patient's right side. The procedure was performed in similar fashion. Patient was noted to have a large cystic thyroid nodule that was replacing almost all thyroid tissue. Median raphae was then closed with running 2-0 Vicryl. Platysma reapproximated with interrupted sutures using 3-0 Vicryl, and the incision was closed with 4-0 Monocryl subcuticular fashion. Instruments, needle and sponge counts were reported to be correct ?2. Patient tolerated procedure well. She was extubated, breathing spontaneously and without difficulty and was transferred to postanesthesia care in stable condition. Anesthesia GETA and local Pathology / specimen Other (Left thyroid lobe, right thyroid lobe) Estimated Blood Loss 20 Condition Stable Disposition PACU Surgeon Dwaine Sosa MD Surgical Staff Operation Date: 01/28/25 10:00 Case Staff Anesthesiologist: Stevie Michelle RN First Assistant: Toña Louie
--- NOTE | 2025-01-28 10:42 | SUR.PHASEI ---
pt received from OR in recovery bay 5. pt obtunded, breathing unlabored on oxymask 8l, oral airway in place. . v/s stable. pt dressing to neck cdi. report received from Dr. Michelle and Danny GAY.
--- NOTE | 2025-01-28 12:22 | SUR.PHASEII ---
pt awake and alert, breathing unlabored on room air. v/s stable. pt dressing to neck cdi. pt able to ambulate to wheelchair with steady gait. d/c instructions given with daughter Carie in room, all questions answered. pt d/c via wheelchair with all belongings.
== END 2025-01-28 12:22 | disposition home or self-care (01) ==
PROVIDERS: Anesthesiology; PCP Internal Medicine; Referring Provider Surgery; Visit Provider Surgery
PROC: (CPT 60240; principal; 2025-01-28 09:45)
DX: E04.2 Nontoxic multinodular goiter (principal); F32.A Depression, unspecified; K21.9 Gastro-esophageal reflux disease without esophagitis; I10 Essential (primary) hypertension
CPT/HCPCS: 60240; 36415; 80053; 85025; A4217; A4649; J0131; J0690; J1100; J1885; J2405; J2704; J3010; J3490

== ENCOUNTER → 2025-02-28 | Outpatient (CLI) | payer OTHER, MEDICAID, SELFPAY ==
--- NOTE | 2025-02-28 13:00 | XR_ITS ---
Examination: Abdomen sonogram, complete Date and time of exam: February 28, 2025 1346 hours INDICATIONS: CT examination September 12, 2024, bile duct 17 mm. Technique: Multiple real-time grayscale transabdominal sonographic images of the abdomen have been obtained. Findings: Absent gallbladder Common bile duct 0.7 cm no stones Pancreatic head 2.6 cm Aorta not enlarged. 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
== END | disposition home or self-care (01) ==
LOC: CDIM 13:08
PROVIDERS: PCP Internal Medicine; Referring Provider Internal Medicine; Visit Provider Internal Medicine
DX: N28.89 Other specified disorders of kidney and ureter (principal)
CPT/HCPCS: 76700

== ENCOUNTER → 2025-04-18 | Outpatient (CLI) | payer OTHER, MEDICAID, SELFPAY ==
--- NOTE | 2025-04-18 11:30 | XR_ITS ---
Examination: CT chest, without intravenous contrast. Sagittal and coronal 2-D reconstructions. Exam date and time: April 18, 2025, 11:30 a.m. INDICATIONS: CT chest September 12, 2024 7 mm pulmonary nodule right upper lobe CTDI:vol (mGy) 7.76 DLP: (mGycm) 268 Technique: Multiple 3.0 mm axial sections of the chest to been obtained. Bone and lung density settings are obtained. Sagittal and coronal 2-D reconstructions have been obtained. Low dose protocols were performed. One or more of the following dose reduction techniques were used; automated exposure control, adjustment of the mA and/or KV according to patient size, use of iterative reconstruction technique. Findings: Thoracic aortic calcification no aneurysmal dilatation Pulmonary artery segments are not enlarged. No paratracheal or tracheobronchial or bronchopulmonary adenopathy Stable 7 mm pulmonary nodule right upper lobe Interval minimal parenchymal disease right base which may represent mild pneumonia No visualized upper splenic lesion Absent gallbladder No pancreatic or adrenal mass 2 mm upper pole left renal calculus IMPRESSION: Stable 7 mm pulmonary nodule right upper lobe Interval minimal parenchymal disease right base which may represent mild pneumonia, recommend follow-up plain chest film imaging to document clearing
== END | disposition home or self-care (01) ==
LOC: CCTX 11:21
PROVIDERS: Referring Provider Internal Medicine; Visit Provider Internal Medicine
DX: R91.8 Other nonspecific abnormal finding of lung field (principal)
CPT/HCPCS: 71250

== ENCOUNTER → 2025-05-14 | Outpatient (CLI) | payer OTHER, MEDICAID, SELFPAY ==
--- NOTE | 2025-05-14 12:15 | XR_ITS ---
EXAMINATION: PA lateral chest 2 views TECHNIQUE: Upright PA lateral chest 2 views Date and time: May 14, 2025, 1323 hours INDICATIONS: History pneumonia 8 months. FINDINGS: Normal heart size No pneumonia or pulmonary edema Prominent osteopenia IMPRESSION: No pneumonia or pulmonary edema
== END | disposition home or self-care (01) ==
LOC: CDIM 12:08
PROVIDERS: PCP Internal Medicine; Referring Provider Internal Medicine; Visit Provider Internal Medicine
DX: R91.8 Other nonspecific abnormal finding of lung field (principal)
CPT/HCPCS: 71046